=== PATIENT | male | born 1960 | race Caucasian/White ===

== ENCOUNTER 2016-10-17 05:24 | Inpatient (IN) | payer BC ==
--- NOTE | 2016-10-15 17:21 | GHP ---
[f rep st] PREOP HISTORY AND PHYSICAL DATE OF ADMISSION: 10/17/2016 PROBLEM: Bilateral hip arthritis. HISTORY OF PRESENT ILLNESS: The patient is a 56-year-old man, admitted for a left hip [place] Hi p Resurfacing arthroplasty. He lives in [place], [place]. He has had progressive pain in jessica th hips for the past 2 years. He has been limping for 1 year. He uses ibuprofen regularly. He has also used hydrocodone. In the last couple of months he has been walking with crutches. 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 He has been unable to work for the last couple of months because he cannot do the heavy lifting and carrying which is involved with his job. He has advanced degenerati ve arthritis in both hips. He will undergo a left hip [place] Hip Resurfacing arthroplasty. He will probably go ahead with his right hip in December. PAST MEDICAL HISTORY: Overall, he is in excellent general health. No history of heart disease, genaro nts, DVT, hepatitis, or sleep apnea. MEDICATIONS: He gets allergy shots once a year. DRUG ALLERGIES: None. METAL ALLERGY: None. LATEX ALLERGY: None. SOCIAL HISTORY: The patient is . He does not smoke cigarettes and rarely drinks alcohol. He does not have any other total joint replacements. FAMILY HISTORY: Positive for cancer, diabetes, and heart disease. PHYSICAL EXAMINATION: GENERAL: He is a fit-appearing man. VITAL SIGNS: Height 5 feet 11 inches. Weight 215 pounds. BMI 30.8. EYES: Conjunctivae and sclerae are clear. Pupils are round and ulises ctive. MOUTH: Good oral hygiene. No loose teeth. CHEST: Clear. HEART: Regular rhythm. No mur murs. EXTREMITIES: Pertinent findings limited to his left hip. He has full hip extension and 70 d egrees of flexion. As he flexes the hip, he develops a 20-degree external rotation contracture and has no further internal or external rotation. Abduction 10 degrees. IMAGING: His films show severe degenerative arthritis of both hips. He is bone on bone. The left hip has significant degeneration in the superior femoral head and acetabulum. IMPRESSION ON ADMISSION: Bilateral hip degenerative arthritis. The left hip is worse than the righ t. He will undergo a left hip [place] Hip Resurfacing arthroplasty. The surgery has been described to him including the risks, complications, expectations, and recovery time. I have discussed with faith covarrubias the risk of dislocation, femoral neck fracture, sciatic nerve injury and infection. He understan ds that he is young and might need revision surgery in the future. I have also talked to him burt calderon about the issue of metal ions and the controversial nature of a aahue-bv-orkmj bearing surface . I am concerned about the degree of bony damage in his femoral head. I have advised him that ther e is a small chance that I could not successfully complete the resurfacing and he might end up with a total hip replacement. The option of a primary total hip replacement has been offered to him. Riaz lofton his questions have been answered, and he consents to surgery. He wishes to proceed with hip resur facing if at all possible. /[id number]/MODL
[2016-10-17] MEDS ORDERED: LIDOCAINE 1% 2 ML INJ ONE (05:46)
[2016-10-17] MEDS ORDERED: DEXAMETHASONE 4 MG/ML VIAL ONE (05:47)
[2016-10-17] MEDS ORDERED: CEFAZOLIN 2 GM/DEXTROSE/100 ML BAG IV ONE (05:47)
[2016-10-17] MEDS ORDERED: FAMOTIDINE 20 MG TAB ONE (05:47)
[2016-10-17] MEDS ORDERED: ACETAMINOPHEN 325 MG TAB ONE (05:47)
[2016-10-17] MEDS ORDERED: LR 1,000 ML IV ONE (06:07)
[2016-10-17] MEDS ORDERED: LIDOCAINE 1% 5 ML SDV ID PRN (06:07)
[2016-10-17] MEDS ORDERED: SKIN ADHESIVE (DERMABOND) 1 EACH TP ONE (06:27)
[2016-10-17] MEDS ORDERED: ceFAZolin 1 GM/5 ML SYR ONE (06:28)
[2016-10-17] MEDS ORDERED: FAMOTIDINE 20 MG TAB PO ONE ×2 (06:30→08:00)
[2016-10-17] MEDS ORDERED: ACETAMINOPHEN 325 MG TAB PO ONE ×2 (06:30→08:00)
[2016-10-17] MEDS ORDERED: ROPI/epiNEPH/KETOROLAC JOINT COCKTAIL IU ONE ×2 (06:30→08:00)
[2016-10-17] MEDS ORDERED: CEFAZOLIN 2 GM/DEXTR 100 ML IV ONE (06:30)
[2016-10-17] MEDS ORDERED: CHLORHEXIDINE GLUC HIBICLENS 118 ML BTL TP ONE ×2 (06:30→08:00)
[2016-10-17] MEDS ORDERED: TRANEXAMIC ACID 1,900 MG in NS 100 ML IV ONE (06:30)
[2016-10-17] MEDS ORDERED: DEXAMETHASONE 4 MG/ML VIAL IVP ONE ×2 (06:30→08:00)
[2016-10-17] MEDS ORDERED: MIDAZOLAM 2 MG/2 ML VIAL ONE (07:03)
[2016-10-17] MEDS ORDERED: PROPOFOL/EMULSION 500 MG/50 ML BOTTLE IV ONE ×2 (07:06→08:25)
[2016-10-17] MEDS ORDERED: fentaNYL 100 MCG/2 ML INJ ONE (07:06)
[2016-10-17] MEDS ORDERED: POVIDONE-IODINE 20 ML in SODIUM CL IRRIG SOLUTION 500 ML IRR ONE (08:00)
[2016-10-17] MEDS ORDERED: epHEDrine SULFATE 10 MG/ML SYR ONE (08:31)
[2016-10-17] MEDS ORDERED: LACTULOSE 20 GM/30 ML UDCUP PO PRN (09:04)
[2016-10-17] MEDS ORDERED: CYCLOBENZAPRINE 10 MG TAB PO PRN (09:04)
[2016-10-17] MEDS ORDERED: POLYETHYLENE GLYCOL 3350 17 GM PKT PO PRN (09:04)
[2016-10-17] MEDS ORDERED: TEMAZEPAM 15 MG CAP PO PRN (09:04)
[2016-10-17] MEDS ORDERED: METOCLOPRAMIDE 10 MG/2 ML VIAL IVP PRN (09:04)
[2016-10-17] MEDS ORDERED: PROMETHAZINE HCL 25 MG SUPPR PR PRN (09:04)
[2016-10-17] MEDS ORDERED: oxyCODONE IR 5 MG TAB PO PRN (09:04)
[2016-10-17] MEDS ORDERED: MAGNESIUM HYDROXIDE 30 ML UDCUP PO PRN (09:04)
[2016-10-17] MEDS ORDERED: DIPHENOXYLATE/ATROPINE LOMOTIL 1 TAB PO PRN (09:04)
[2016-10-17] MEDS ORDERED: ONDANSETRON 4 MG/2 ML VIAL IVP PRN (09:04)
[2016-10-17] MEDS ORDERED: diphenhydrAMINE 25 MG CAP PO PRN (09:04)
[2016-10-17] MEDS ORDERED: PHARMACY PAIN CONSULT 1 EA MISC PRN (09:04)
[2016-10-17] MEDS ORDERED: traMADol 50 MG TAB PO PRN (09:04)
[2016-10-17] MEDS ORDERED: BISACODYL 10 MG SUPP PR PRN (09:04)
[2016-10-17] MEDS ORDERED: ONDANSETRON DISINTEGRATING 4 MG TAB PO PRN (09:04)
[2016-10-17] MEDS ORDERED: KETOROLAC 30 MG/1 ML SDV IVP PRN (09:04)
[2016-10-17] MEDS ORDERED: NS 500 ML IV PRN (09:04)
[2016-10-17] MEDS ORDERED: LR 1,000 ML IV SCH (09:30)
--- NOTE | 2016-10-17 09:42 | GOP ---
[f rep st] OPERATIVE REPORT DATE OF OPERATION: 10/17/2016 SURGEON: Alex Chase MD EVP [place]: Pancho Hernandez and Tito Fountain. ANESTHESIA: A combination of Marcaine spinal and IV sedation. ANESTHESIOLOGIST: Dr. Dhruv Dowling. PREOPERATIVE DIAGNOSIS: Left hip severe degenerative arthritis. POSTOPERATIVE DIAGNOSIS: Left hip severe degenerative arthritis. PROCEDURE PERFORMED: Left hip [place] hip resurfacing arthroplasty. FINDINGS: DESCRIPTION OF PROCEDURE: The patient was given 2 g of preoperative Ancef within 60 minutes of surg bree. He also received IV tranexamic acid at a dose of 20 mg/kg. He was placed on the operating pablo m table and given spinal anesthesia with Marcaine by Dr. Dowling. He was then placed supine and given IV sedation. A [place] catheter was not used. He wore a compressive stocking and SCD on the nonoper ative leg. He was rolled to the right lateral decubitus position. An axillary roll was used and al l pressure points were carefully padded. The position was secured with the pegboard table attachmen t. I was careful to lock his pelvis in a vertical position. His perineum was isolated with plastic adhesive drapes. The left hip and left lower extremity were prepped with ChloraPrep. They were dr aped free using sterile sheets, stockinette, and Ioban plastic drape. The World Health Organization time-out was performed to verify the correct patient identity and the correct surgical side. The [place] time-out was also performed. I made a 6-7 inch straight oblique posterolateral hip skin incision. The subcutaneous tissues were sharply divided and hemostasis was obtained using electrocautery. The fascia willam was identified an d split along the axis of its fibers. I curved posteriorly and proximally and split the fascia of t he gluteus yomi and bluntly split the muscle fibers in line with their orientation. His sciatic nerve was identified and protected throughout the procedure. The Charnley self-retaining retractor was inserted. The external rotators and the posterior hip capsule were divided as separate layers a t the base of the femoral neck, tagged and reflected posteriorly. The gluteus yomi tendon was di vided and tagged in order to improve exposure and release tension on the sciatic nerve. His hip was dislocated posteriorly. I used a sizing gauge to check the diameter of the neck and concluded that 50 mm was the proper head size. I performed a circumferential capsulotomy. I was able to retract the femoral head anteriorly and superiorly and hold it out of place with appropriate retractors. Th e remnant of his damaged labrum was completely excised. The acetabulum was reamed sequentially up t o 56 mm. Even though there were some subchondral cysts present on his preoperative x-rays, they wer e not seen during the reaming process. I selected a [place] monoblock porous-coated acetabular c omponent with an outside diameter of 56 mm. This was firmly impacted and was very tight. I was car eful to determine proper inclination and anteversion. I used a transverse acetabular ligament and o ther acetabular bony landmarks to help determine proper cup orientation. Small posterior inferior o steophytes were removed with an osteotome and rongeur. I was careful to leave a good lip of bone an d capsule extending beyond the anterior-inferior lip of the metal cup. I then returned to preparation of the femoral head. Using appropriate jigs and guides, I inserted a guide pin into the femoral head and neck. I was careful to position in such a way that there would be no notching of the neck. The large sterile metal goniometer was used to check the neck shaft an gle. I reamed over the guide pin and inserted the reaming guide. I then used the cylindrical reame r down to the head and neck junction. This was followed by the flat reamer and the chamfer reamer. The patient had significant degeneration and cyst formation on his preoperative x-rays. However, w hen I prepared the head, the quality of the bone was surprisingly good and there were no visible cys ts. His head was sized for 50 mm. There was no impingement or damage to the neck. I drilled a sma ll hole in the lesser trochanter and inserted a suction cannula to create a negative pressure in the medullary canal. Small holes were drilled on the flattened chamfer surfaces of the prepared head f or cement anchors. The head was thoroughly cleaned with the pulsating lavage and carefully dried. I used the CarboJet device to blow dry the cancellous surfaces. A single batch of Simplex cement wi th tobramycin was mixed. At about 50 seconds, I poured the liquid cement into the head component, i nserted it onto the femoral head and impacted it into place. Excess cement was removed before it bardales rdened. The acetabulum was irrigated, cleaned, and inspected. The hip was reduced. Stability and range of motion were checked. I placed my finger along the anterior aspect of the acetabular compon ent and flexed the hip to 110 degrees. There was no anterior impingement. The suction cannula on t he lesser trochanter was removed. The wound was thoroughly irrigated with a dilute Betadine solutio n. 40 cc of the joint anesthetic cocktail were injected into the capsule, the deep musculature and the subcutaneous tissues along the skin edges. His sciatic nerve was reinspected and looked unharmed. The external rotators and the posterior hip capsule were repaired in separate layers with #2 FiberWire sutures through drill holes in the greate r trochanter. This provided a strong posterior capsular and external rotator repair. The gluteus m aximus tendon was repaired with 2 interrupted ibwlny-yq-cnhjw #2 FiberWire sutures. The fascia willam was repaired with 2 interrupted chijge-ve-ltgnr #2 FiberWire sutures, followed by a running #2 dinorah ed Ethicon Stratafix PDO suture. The subcutaneous tissues were closed with a running 0 barbed Ethic on Stratafix Monoderm suture. The skin was closed with a running 3-0 barbed Ethicon Stratafix Monod erm subcuticular suture. The skin edges were reapproximated and sealed with Dermabond glue. The wo und was covered with a strip of Telfa, and everything was held in place with a piece of clear plasti c Tegaderm. The estimated blood loss was 400 mL. I used a Babin and Nephew [place] hip resurfacing system. The acetabular component was 56 mm in diameter and press-fit. The femoral head was 50 mm and cemented. He was awakened from anesthesia a nd rolled to the supine position on his [facility]. A long leg compressive stocking and SCD we re applied to the operative leg. He wore a stocking and SCD on the opposite leg during the procedur e. An abduction pillow was placed between his knees. He was taken to PACU in satisfactory conditio n. There were no recognized intraoperative complications. The sponge and needle count were correct on 2 occasions. Pancho Hernandez and Tito Fountain acted as surgical assistants. Their assistance was a medical thierry delvalle. /[id number]/MODL
[2016-10-17] MEDS: TRANEXAMIC ACID 650 MG TAB PO SCH ×3 (11:18→22:07)
[2016-10-17] MEDS: ACETAMINOPHEN 325 MG TAB PO SCH ×2 (11:18→17:15)
[2016-10-17] MEDS: ceFAZolin 2 GM/DEXTROSE 100 ML IV SCH ×2 (13:16→22:07)
[2016-10-17] MEDS: SENNOSIDES/DOCUSATE SODIUM TAB PO SCH (20:28)
[2016-10-17] MEDS: FAMOTIDINE 20 MG TAB PO SCH (20:28)
[2016-10-17] MEDS: ASPIRIN 325 MG TAB PO SCH (20:28)
[2016-10-18] MEDS: ACETAMINOPHEN 325 MG TAB PO SCH ×3 (00:09→11:42)
[2016-10-18 05:15] LABS: HEMATOCRIT 38.6 % (40.0-51.0); HEMOGLOBIN 13.5 g/dL (13.7-17.5)
--- NOTE | 2016-10-18 07:36 | SOAPPROG ---
SOAP Progress Note Assessment/Plan: Assessment: Awake and alert. Afebrile. Moderate pain. Has been walking in room. Dsg is dry. H/H is good. Films look good. Plan: Up with PT today. DC later today. 10/18/16 07:35 Objective: Vital Signs Temp Pulse Resp BP Pulse Ox 36.9 C 80 16 137/83 H 94 10/18/16 04:00 10/18/16 04:00 10/18/16 04:00 10/18/16 04:00 10/18/16 04:00 Laboratory Results 10/18/16 05:05 10/17/16 10/18/16 10/19/16 05:59 05:59 05:59 Intake Total 2595 200 Output Total 2055 Balance 540 200 ICD10 Worksheet Patient Problems: Problems Problem Status Onset Osteoarthritis of left hip Acute
[2016-10-18] MEDS: TRANEXAMIC ACID 650 MG TAB PO SCH (07:41)
--- NOTE | 2016-10-18 08:09 | GDS ---
[f rep st] DISCHARGE SUMMARY ADMISSION DIAGNOSIS: Left hip severe degenerative arthritis. DISCHARGE DIAGNOSIS: Left hip severe degenerative arthritis. OPERATION PERFORMED: 10/17/2016, a left hip [place] hip resurfacing arthroplasty. POSTOPERATIVE COMPLICATIONS: None. CONDITION ON DISCHARGE: Improved. DESCRIPTION OF HOSPITAL COURSE: The patient was admitted to the hospital on the morning of surgery. His admission CBC was normal. The same day, under a combination of Marcaine spinal and IV sedatio n, he underwent a left hip [place] hip resurfacing arthroplasty. Postoperatively, he was treated with multimodal DVT prophylaxis including aspirin and early mobilization. On the first postoperati ve day, his hemoglobin and hematocrit were 13.5 and 38.6. He was seen by Physical Therapy and made good progress with ambulation and stairs. By the time of discharge, he was afebrile, his wound was clean and dry, and he was independent in walking. DISPOSITION: Patient is discharged to a local hotel. I will see him in the office tomorrow and the n after that, he is going to fly back to [place], [place]. He may progress to full weightbea ring on the left as tolerated. Use an abduction pillow in bed for 3 weeks. Use KATERINE stockings for 1 week. He has prescriptions for oxycodone and tramadol for pain control. Continue aspirin 325 mg p .o. daily for 21 days. I will see him back in the office on November 27. He is going to have his right h ip done at that time. He is to call the office if there are any problems or questions. /[id number]/MODL
[2016-10-18 08:12] VITALS: BP 156/96; PULSE 72; RESP 12; TEMP 98.2; O2SAT 95
[2016-10-18] MEDS: ASPIRIN 325 MG TAB PO SCH (08:18)
[2016-10-18] MEDS: FAMOTIDINE 20 MG TAB PO SCH (08:18)
[2016-10-18] MEDS: SENNOSIDES/DOCUSATE SODIUM TAB PO SCH (08:18)
[2016-10-18] MEDS ORDERED: FERROUS SULFATE 140 MG TAB.ER PO SCH (09:00)
== END 2016-10-18 14:07 | disposition home or self-care (01) | DRG 470 ==
LOC: F3N 05:24 → EDBD 07:15 → F3N 10:55
PROVIDERS: ADMIT Orthopaedic Surgery; ATTEND Orthopaedic Surgery
PROC: 0SUB0BZ Supplement Left Hip Joint with Resurfacing Device, Open Approach (ICD-10-PCS; principal; 2016-10-17 07:15)
DX: M16.0 Bilateral primary osteoarthritis of hip (principal)
CPT/HCPCS: 97110-GP; 97116-GP; 97161-GP; 97165-GO; C1713; C1769; J0171; J0690; J1100; J1885; J2250; J2704; J2795; J3010

== ENCOUNTER 2016-11-27 07:05 | Inpatient (IN) | payer BC ==
--- NOTE | 2016-11-26 14:33 | GHP ---
[f rep st] PREOP HISTORY AND PHYSICAL DATE OF ADMISSION: 11/27/2016. He will be an a.m. admission for surgery on Sunday November 27, 2016. PROBLEM: Right hip advanced degenerative arthritis. HISTORY OF PRESENT ILLNESS: The patient is a 56-year-old man admitted for a right [place] hip resurfacing arthroplasty. He lives in [place], [place]. He has had progressive pain in both hips for the past 2 years. He has been limping for a year. He uses ibuprofen regularly and has also used some hydrocodone. In the past couple of months he has had to walk with crutches. His work involves a lot of heavy lifting and he has been unable to work for the last few months. He underwent a left hip [place] resurfacing arthroplasty on October 17, 2016, with a good early result. He is admitted now for the same procedure on the right hip. PAST MEDICAL HISTORY: Excellent general health. No history of heart disease, stents, DVT, hepatitis, or sleep apnea. MEDICATIONS: He gets allergy shots once a year. DRUG ALLERGIES: None. METAL ALLERGY: None. LATEX ALLERGY: None. SOCIAL HISTORY: The patient is . He does not smoke cigarettes and rarely drinks alcohol. FAMILY HISTORY: Positive for cancer, diabetes and heart disease. PHYSICAL EXAMINATION: GENERAL: He is a fit-appearing man. VITAL SIGNS: Height 5 feet 11 inches. Weight 215 pounds. BMI 20.8. EYES: Conjunctivae and sclerae are clear. Pupils round and reactive. MOUTH: Good oral hygiene. No loose teeth. CHEST: Clear. HEART: Regular rhythm. No murmurs. EXTREMITIES: Pertinent findings limited to his right hip. He has full hip extension and about 70 degrees of flexion. As he flexes the hip, he develops a 20-degree external rotation contracture and has no further internal or external rotation. He only has about 10 or 15 degrees of hip abduction. IMAGING: His films show very severe degenerative arthritis of the right hip. He is bone on bone. Subchondral cysts are present in the acetabulum and femoral head. His left BHR looks properly sized and positioned. IMPRESSION ON ADMISSION: 1. Right hip advanced degenerative arthritis. He is prepared for right [place] hip resurfacing. 2. Five weeks status post left hip [place] hip resurfacing with good early progress. The surgery has been described to him including the risks, complications, expectations, and recovery time. I have advised him that with bilateral procedures there can be mild buip-yh-iuec differences in the recovery and final result. I have advised him of the risk of dislocation, femoral neck fracture, sciatic nerve injury and infection. We have also extensively discussed the risk of metal ions. He understands that he is young for any type of hip arthroplasty and may require revision surgery in the future. All his questions have been answered, and he consents to surgery. /[id number]/MODL MTDD
[~2016-11-27 07:05] MED LIST: ACETAMINOPHEN 325 MG TAB PO ONE; CEFAZOLIN 2 GM/DEXTR 100 ML IV ONE; CHLORHEXIDINE GLUC HIBICLENS 118 ML BTL TP ONE; DEXAMETHASONE 4 MG/ML VIAL IVP ONE; FAMOTIDINE 20 MG TAB PO ONE; NS IV ONE; POVIDONE-IODINE 20 ML in SODIUM CL IRRIG SOLUTION 500 ML IRR ONE; ROPI/epiNEPH/KETOROLAC JOINT COCKTAIL IU ONE; TRANEXAMIC ACID IV ONE
[2016-11-27] MEDS ORDERED: ceFAZolin 1 GM/5 ML SYR ONE (07:34)
[2016-11-27] MEDS ORDERED: LIDOCAINE 1% 5 ML SDV ID PRN (08:14)
[2016-11-27] MEDS ORDERED: LR 1,000 ML IV ONE (08:14)
[2016-11-27] MEDS ORDERED: FAMOTIDINE 20 MG TAB ONE (08:18)
[2016-11-27] MEDS ORDERED: ACETAMINOPHEN 325 MG TAB ONE ×2 (08:18→08:23)
[2016-11-27] MEDS ORDERED: DEXAMETHASONE 4 MG/ML VIAL ONE (08:18)
[2016-11-27] MEDS ORDERED: CEFAZOLIN 2 GM/DEXTROSE/100 ML BAG IV ONE (08:39)
[2016-11-27] MEDS ORDERED: PROPOFOL/EMULSION 500 MG/50 ML BOTTLE IV ONE (09:07)
[2016-11-27] MEDS ORDERED: MIDAZOLAM 2 MG/2 ML VIAL ONE (10:05)
[2016-11-27] MEDS ORDERED: PHENYLEPHRINE HCL 100 MCG/ML SYR ONE (11:00)
[2016-11-27] MEDS ORDERED: LIDOCAINE 2% 5 ML SDV ONE (11:00)
--- NOTE | 2016-11-27 11:50 | POSTOPPROG ---
Post Op Note Date of Operation: 11/27/16 Surgeon: Alex Chase Aluminum Can Collector: Marcy Anesthesiologist: Magda Anesthesia: GET(General Endotracheal), Spinal Post-op Diagnosis: right hip arthritis Procedure: R BHR Inf/Abcess present in the surg proc area at time of surgery?: No EBL: 100-500
[2016-11-27] MEDS ORDERED: NS 500 ML IV PRN (12:07)
[2016-11-27] MEDS ORDERED: oxyCODONE IR 5 MG TAB PO PRN (12:07)
[2016-11-27] MEDS ORDERED: ONDANSETRON 4 MG/2 ML VIAL IVP PRN (12:07)
[2016-11-27] MEDS ORDERED: LACTULOSE 20 GM/30 ML UDCUP PO PRN (12:07)
[2016-11-27] MEDS ORDERED: KETOROLAC 30 MG/1 ML SDV IVP PRN (12:07)
[2016-11-27] MEDS ORDERED: METOCLOPRAMIDE 10 MG/2 ML VIAL IVP PRN (12:07)
[2016-11-27] MEDS ORDERED: MAGNESIUM HYDROXIDE 30 ML UDCUP PO PRN (12:07)
[2016-11-27] MEDS ORDERED: DIPHENOXYLATE/ATROPINE LOMOTIL 1 TAB PO PRN (12:07)
[2016-11-27] MEDS ORDERED: BISACODYL 10 MG SUPP PR PRN (12:07)
[2016-11-27] MEDS ORDERED: diphenhydrAMINE 25 MG CAP PO PRN (12:07)
[2016-11-27] MEDS ORDERED: CYCLOBENZAPRINE 10 MG TAB PO PRN (12:07)
[2016-11-27] MEDS ORDERED: PROMETHAZINE HCL 25 MG SUPPR PR PRN (12:07)
[2016-11-27] MEDS ORDERED: TEMAZEPAM 15 MG CAP PO PRN (12:07)
[2016-11-27] MEDS ORDERED: POLYETHYLENE GLYCOL 3350 17 GM PKT PO PRN (12:07)
[2016-11-27] MEDS ORDERED: traMADol 50 MG TAB PO PRN (12:07)
[2016-11-27] MEDS ORDERED: ONDANSETRON DISINTEGRATING 4 MG TAB PO PRN (12:07)
[2016-11-27] MEDS ORDERED: PHARMACY PAIN CONSULT 1 EA MISC PRN (12:07)
[2016-11-27] MEDS ORDERED: LR 1,000 ML IV SCH (12:30)
--- NOTE | 2016-11-27 12:45 | GOP ---
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 ANESTHESIOLOGIST: Viviana Man MD. PREOPERATIVE DIAGNOSIS: Right hip severe degenerative arthritis. POSTOPERATIVE DIAGNOSIS: Right hip severe degenerative arthritis. PROCEDURE PERFORMED: 11/27/2016, right hip [place] hip resurfacing arthroplasty. FINDINGS: DESCRIPTION OF PROCEDURE: The patient was given 2 g of IV Ancef preoperatively within 60 minutes of surgery. He also received IV tranexamic acid at a dose of 20 mg/kg. He was placed on the operatin g room table and given spinal anesthesia with Marcaine by Dr. Man. He was then placed supine and given IV sedation. A [place] catheter was not used. He wore a compressive stocking and SCD on the n onoperative leg. He was rolled to the left lateral decubitus position. An axillary roll was used. All pressure points were carefully padded. The position was secured with the pegboard table attach ment. I was careful to lock his pelvis in a vertical position. His perineum was isolated with plas tic adhesive drapes. The right hip and right lower extremity were prepped with ChloraPrep. They we re draped free using sterile sheets, stockinette, and Ioban plastic drape. The World Health Organization time-out was performed to verify the correct patient identity and the correct surgical side and site. The [place] time-out was also performed. I made a 6-7 inch straight oblique posterolateral hip skin incision. The subcutaneous tissues were sharply divided. Hemostasis was obtained using electrocautery. The fascia willam was identified and split along the axis of its fibers. I then curved posteriorly and proximally, and split the fascia of the gluteus yomi and bluntly split the muscle fibers in line with their orientation. His scia tic nerve was identified and protected throughout the procedure. The Charnley self-retaining retrac tor was inserted. The external rotators and the posterior hip capsule were divided as separate laye rs at the base of the femoral neck, tagged and reflected posteriorly. The gluteus yomi tendon wa s divided and tagged in order to improve exposure and release tension on the sciatic nerve. The hip was dislocated posteriorly. I used a sizing gauge to check the diameter of the neck, and concluded that 50 mm was the proper head size. This is the same size that I had used on his opposite hip. I performed a circumferential capsulotomy. I was able to retract the femoral head anteriorly and sup eriorly and hold it out of place with appropriate retractors. The remnant of his damaged labrum was completely excised. The acetabulum was reamed sequentially up to 56 mm. I selected the [place] monoblock porous-coated acetabular component with an outside diameter of 56 mm. This was firmly im pacted and was a very tight fit. I was careful to determine proper inclination and anteversion. I used the transverse acetabular ligament and other acetabular bony landmarks to help me properly orie nt the cup. Posterior and inferior osteophytes were removed with an osteotome and rongeur. I was c areful to leave a good lip of bone and capsule extending beyond the anterior-inferior lip of the met al cup. I then returned to preparation of the femoral head. Using appropriate jigs and guides, I inserted a guidepin into the femoral head and neck. I was careful to position in such a way there would be no notching of the neck. The large sterile metal goniometer was used to check the neck shaft angle. I reamed over the guidepin and inserted the reaming guide. I then used the cylindrical reamer down to the head and neck junction. This was followed by the flat reamer and the chamfer reamer. The he ad was sized for 50 mm. There was no impingement or damage to the neck. I drilled a small hole in the lesser trochanter, and inserted a suction cannula to create a negative pressure in the medullary canal. Small holes were drilled on the flattened chamfer surfaces of the prepared head for cement anchors. The head was thoroughly cleaned with the pulsating lavage and carefully dried. I used a C arboJet device to blow dry the cancellous surfaces. A single batch of Simplex cement with tobramyci n was mixed. At about 50 seconds, I poured the liquid cement into the head component, inserted abou t the femoral head and impacted it into place. Excess cement was removed before it hardened. The a cetabulum was irrigated, cleaned, and inspected, and the hip was reduced. Stability and range of mo tion were checked. I placed my finger along the anterior aspect of the acetabular component and fle xed the hip to 100 degrees. There was no anterior impingement. The suction cannula lesser trochant er was removed. The wound was thoroughly irrigated with a dilute Betadine solution. 40 cc of the j oint anesthetic cocktail were injected in the capsule, the deep musculature, and subcutaneous tissue s along the skin edges. His sciatic nerve was reinspected and looked unharmed. The external rotators and the posterior hip capsule were repaired in separate layers with #2 FiberWire sutures through drill holes in the greate r trochanter. This provided a strong posterior capsular and external rotator repair. The gluteus m aximus tendon was repaired with two #2 pnmtoo-pg-tbtxu FiberWire sutures. The fascia willam was repai red 1st, with 2 interrupted rozrmg-nx-cwvez #2 FiberWire sutures, followed by a running #2 barbed Et hicon Stratafix PDO suture. Subcutaneous tissues were closed with a running 0 barbed Ethicon Strata fix Monoderm suture. The skin was closed with a running 3-0 barbed Ethicon Stratafix Monoderm subcu ticular suture. The skin edges were reapproximated and sealed with Dermabond glue. The wound was c overed with a strip of Telfa, and everything was held in place with a piece of clear plastic Tegader m. The estimated blood loss was about 400 mL. I used a Babin and Nephew [place] hip resurfacing system. The acetabular component was 56 mm in diameter and press-fit. The femoral component was 50 mm and cemented. He was awakened from anesthe huyen and rolled to the supine position [facility]. A long-leg KATERINE stocking and SCD were applied to the operative leg. He wore a stocking and SCD on the opposite leg during the procedure. An abduction pillow was placed between his knees. He was taken to PACU in satisfactory condition. There were no recognized intraoperative complications. The sponge and needle count were correct on 2 occasions. Pancho Hernandez and Diaz Fountain acted as surgical assistants. Their assistance was a medical ne cessity. SURGEON: Alex Chase MD /[id number]/MODL
[2016-11-27] MEDS: ceFAZolin 2 GM/DEXTROSE 100 ML IV SCH ×2 (13:42→22:14)
[2016-11-27] MEDS: ACETAMINOPHEN 325 MG TAB PO SCH (17:46)
[2016-11-27] MEDS: TRANEXAMIC ACID 650 MG TAB PO SCH (17:46)
[2016-11-27] MEDS: ASPIRIN 325 MG TAB PO SCH (20:44)
[2016-11-27] MEDS: FAMOTIDINE 20 MG TAB PO SCH (20:45)
[2016-11-27] MEDS: SENNOSIDES/DOCUSATE SODIUM TAB PO SCH (20:45)
[2016-11-28] MEDS: ACETAMINOPHEN 325 MG TAB PO SCH ×3 (00:01→12:06)
[2016-11-28] MEDS: TRANEXAMIC ACID 650 MG TAB PO SCH ×2 (02:59→12:06)
[2016-11-28 04:57] LABS: HEMATOCRIT 37.8 % (40.0-51.0)
[2016-11-28] MEDS: ASPIRIN 325 MG TAB PO SCH (08:15)
[2016-11-28] MEDS: SENNOSIDES/DOCUSATE SODIUM TAB PO SCH (08:16)
[2016-11-28] MEDS: FAMOTIDINE 20 MG TAB PO SCH (08:16)
[2016-11-28] MEDS ORDERED: FERROUS SULFATE 140 MG TAB.ER PO SCH (09:00)
--- NOTE | 2016-11-28 09:00 | SOAPPROG ---
SOAP Progress Note Assessment/Plan: Assessment: Afebrile. Mild pain. Up and walking in room. Voiding well. H/H is good. Films look good. Sciatic nerve intact. Dsg is dry.. Plan:DC to local motel today. Office appt Mike. 11/28/16 08:59 Objective: Vital Signs Temp Pulse Resp BP Pulse Ox 36.7 C 83 14 139/85 H 98 11/28/16 08:00 11/28/16 08:00 11/28/16 08:00 11/28/16 08:00 11/28/16 08:00 Laboratory Results 11/28/16 04:47 11/27/16 11/28/16 11/29/16 05:59 05:59 05:59 Intake Total 1683 Output Total 1150 Balance 533 ICD10 Worksheet Patient Problems: Problems Problem Status Onset Osteoarthritis of right hip Acute Osteoarthritis of left hip Acute
--- NOTE | 2016-11-28 09:42 | GDS ---
[f rep st] DISCHARGE SUMMARY PREOPERATIVE DIAGNOSIS: Right hip severe degenerative arthritis. POSTOPERATIVE DIAGNOSIS: Right hip severe degenerative arthritis. OPERATION PERFORMED: 11/27/2016, right hip [place] hip resurfacing arthroplasty. POSTOPERATIVE COMPLICATIONS: None. CONDITION ON DISCHARGE: Improved. HOSPITAL COURSE: The patient was admitted to the hospital on the morning of surgery. His admission CBC was normal except for a platelet count of 515,000. The same day, under a combination of Marcai ne spinal and IV sedation, he underwent a right hip [place] hip resurfacing arthroplasty. Postop eratively, he was treated with multimodal DVT prophylaxis, including aspirin and early mobilization. On the 1st postoperative day, his hemoglobin and hematocrit were 13.0 and 37.8. He did not requir e any transfused blood. He was seen by Physical Therapy and made excellent progress with ambulation and stairs. By the time of discharge, he was afebrile, his wound was clean and dry, and he was ind ependent walking with crutches. DISPOSITION: The patient is staying in a local [facility]. I will see him in the office tomorro w. On Saturday, he is going back to [place], [place]. He may progress to full weightbearing o n the right as tolerated. Use an abduction pillow in bed for 3 weeks. Continue aspirin 325 mg p.o. daily for 21 days. He has prescriptions for oxycodone and tramadol for pain control. If there are any problems, he is to call me at the office. /[id number]/MODL
[2016-11-28 12:47] VITALS: BP 134/81; PULSE 88; RESP 15; TEMP 98.6; O2SAT 95
== END 2016-11-28 14:29 | disposition home or self-care (01) | DRG 470 ==
LOC: F3N 07:05
PROVIDERS: ADMIT Orthopaedic Surgery; ATTEND Orthopaedic Surgery
PROC: 0SU90BZ Supplement Right Hip Joint with Resurfacing Device, Open Approach (ICD-10-PCS; principal; 2016-11-27 09:15)
DX: M16.11 Unilateral primary osteoarthritis, right hip (principal)
CPT/HCPCS: 97110-GP; 97116-GP; 97161-GP; 97165-GO; 97530-GP; C1713; C1769; J0171; J0690; J1100; J1885; J2250; J2370; J2704; J2795